=== PATIENT | male | born 1990 | race Caucasian/White ===

== ENCOUNTER 2019-10-01 05:55 | Emergency (ER) | payer OTHER ==
[~2019-10-01] VITALS: Ht 177.8 cm; Wt 129.0 kg
[2019-10-01] MEDS ORDERED: MELO7.5T12 PO (07:42)
--- NOTE | 2019-10-01 07:55 | NUR ---
OFF TRAUMA STATUS UP FOR DISCHARGE
[2019-10-01 08:25] VITALS: BP 123/77
== END 2019-10-01 08:27 | disposition home or self-care (01) ==
LOC: ER 05:55
DX: S60.221A Contusion of right hand, initial encounter (principal); S80.211A Abrasion, right knee, initial encounter; Z88.0 Allergy status to penicillin; V49.88XA Car occupant (driver) (passenger) injured in other specified transport accidents, initial encounter; Y93.89 Activity, other specified; Y92.413 State road as the place of occurrence of the external cause; Y99.9 Unspecified external cause status
CPT/HCPCS: 73130; 99283